=== PATIENT | male | born 1995 | race Caucasian/White ===

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

== ENCOUNTER → 2018-08-14 | Outpatient (REF) ==
--- NOTE | 2018-08-15 01:22 | REP ---
Clinical: Pain and disability. Technique: Neutral and frog lateral views of the left hip. Findings: Orthopedic hardware overlies the left iliac bone and screws overlying the left hip joint are likely external to the joint space itself although complete evaluation is limited due to lack of orthogonal views. The hip joint appears intact and relatively normal. No significant degenerative changes appreciated. Area of heterotopic ossification appears to extend from the iliac wing into the lateral soft tissue. Impression: Left hip joint appears intact and relatively normal. As above. Electronically Signed by Tyler Schreiber MD 08/15/2018 01:14 A
== END ==
LOC: M SMT 11:12
PROVIDERS: ATTEND Internal Medicine
DX: Z02.71 Encounter for disability determination (principal)

== ENCOUNTER 2019-01-02 13:16 | Day surgery (SDC) | payer OTHER ==
[~2019-01-02] VITALS: Ht 180.3 cm; Wt 69.9 kg
[2019-01-02] MEDS ORDERED: HYDR-2808 (13:52)
[2019-01-02] MEDS ORDERED: PROPOFOL 200 MG/20 ML VIAL As Ordered ONE (13:54)
[2019-01-02] MEDS ORDERED: LIDOCAINE 2% INJ 100 MG/5 ML SDV (FOR ANES.) As Ordered ONE (13:54)
[2019-01-02] MEDS ORDERED: ONDANSETRON 4MG/2ML VIAL (J2405) As Ordered ONE (13:54)
[2019-01-02] MEDS ORDERED: dexameTHASONE 4 MG/ML 1ML VIAL (J1100) As Ordered ONE (13:54)
[2019-01-02] MEDS ORDERED: fentaNYL 100 MCG/2 ML INJECTION (J3010) As Ordered ONE ×2 (13:55→16:07)
[2019-01-02] MEDS ORDERED: MIDAZOLAM INJ 2 MG/2 ML VIAL (J2250) As Ordered ONE (13:55)
[2019-01-02] MEDS ORDERED: ceFAZolin 1GM INJ (J0690 PER 500MG) As Ordered ONE ×2 (14:32→16:38)
[2019-01-02] MEDS ORDERED: KETOROLAC 60 MG/2 ML VIAL (J1885) As Ordered ONE (15:12)
[2019-01-02] MEDS ORDERED: CEPHALEXIN 500 MG CAP PO SCH (17:00)
[2019-01-02] MEDS ORDERED: NORCO, ANEXSIA 5/325MG TABLET (HYDROcodone/ACETAMINOPHEN) PO PRN ×2 (17:45)
[2019-01-02] MEDS ORDERED: LR 1,000 ML IV SCH ×2 (17:45)
[2019-01-02] MEDS ORDERED: fentaNYL 100 MCG/2 ML INJECTION (J3010) IV PRN (17:45)
[2019-01-02] MEDS ORDERED: PERCOCET 5MG/325MG TAB PO PRN (17:45)
[2019-01-02] MEDS ORDERED: MORPHINE 4 MG/ML 1ML VIAL/SYRINGE (J2270) IV PRN (17:45)
[2019-01-02] MEDS ORDERED: ONDANSETRON 4MG/2ML VIAL (J2405) IV PRN (17:45)
[2019-01-02 18:45] VITALS: BP 111/76
--- NOTE | 2019-01-02 19:24 | REP ---
Right elbow intraoperative fluoroscopic views: A series of 12 intraoperative fluoroscopic views are performed during hardware removal. Fluoroscopic exposure time is 34 seconds. Fluoroscopic images are performed last image hold technology and require no additional radiation. Electronically Signed by Anish Duncan MD 01/02/2019 07:16 P
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
== END 2019-01-02 19:14 | disposition home or self-care (01) ==
LOC: M SDC 13:16
PROVIDERS: ATTEND Orthopaedic Surgery
DX: T84.122A Displacement of internal fixation device of bone of right forearm, initial encounter (principal); I10 Essential (primary) hypertension; Z79.899 Other long term (current) drug therapy; F12.10 Cannabis abuse, uncomplicated
CPT/HCPCS: 20680; 73080; J0690; J1100; J1885; J2250; J2405; J3010

== ENCOUNTER → 2020-07-07 | Outpatient (CLI) | payer SELFPAY ==
[~2020-07-07] MED LIST: HYDR-4429
== END ==
LOC: M LABSMTC 13:16
PROVIDERS: ATTEND Pediatrics
DX: Z20.828 Contact with and (suspected) exposure to other viral communicable diseases (principal)

== ENCOUNTER → 2020-07-18 | Outpatient (CLI) | payer SELFPAY | LOC: M LABSMTC 09:44 | PROVIDERS: ATTEND Pediatrics | DX: Z20.822 Contact with and (suspected) exposure to COVID-19 (principal) ==

== ENCOUNTER → 2020-10-06 | Outpatient (CLI) | payer SELFPAY | LOC: M LABSMTC 09:47 | PROVIDERS: ATTEND Pediatrics | DX: Z20.822 Contact with and (suspected) exposure to COVID-19 (principal) ==

== ENCOUNTER → 2021-05-06 | Outpatient (CLI) | payer OTHER | LOC: M LABSMTC 09:15 | PROVIDERS: ATTEND Family Medicine | DX: Z20.822 Contact with and (suspected) exposure to COVID-19 (principal) | CPT/HCPCS: C9803; U0003 ==

== ENCOUNTER → 2021-08-19 | Outpatient (REF) | payer OTHER | LOC: M LAB REF 16:30 | PROVIDERS: ATTEND Surgery | DX: L72.3 Sebaceous cyst (principal) ==